=== PATIENT | female | born 2000 | race Caucasian/White ===

== ENCOUNTER 2020-03-29 06:51 | Outpatient (NON) | payer OTHER, SELFPAY ==
[2020-03-29 18:18] LABS: SARS-CoV-2 RNA PCR Negative
== END 2020-03-29 06:52 ==
PROVIDERS: Visit Provider Pediatrics
DX: Z20.828 Contact with and (suspected) exposure to other viral communicable diseases (principal); R50.9 Fever, unspecified
CPT/HCPCS: 87635; C9803; U0003

== ENCOUNTER 2021-01-06 19:16 | Emergency (ER) | payer OTHER, SELFPAY ==
--- NOTE | ~2021-01-06 | US_ITS ---
EXAMINATION: US OB <=14 wk fetus w TV DATE: 01/06/2021 20:19 INDICATION: Cramping and bleeding. TECHNIQUE: Real-time transabdominal and transvaginal pelvic ultrasound was performed. COMPARISON: None. FINDINGS: TRANSABDOMINAL ULTRASOUND: The uterus measures 8.0 x 4.3 x 5.0 cm. TRANSVAGINAL ULTRASOUND: There is a 4 mm cyst in the endometrial complex that may be a gestational sa c with estimated gestational age of 5 weeks and 0 days +/- 3 days. No yolk sac or pole is ident ified. The right ovary measures 2.9 x 2.2 x 2.0 cm. The left ovary measures 3.2 x 2.9 x 2.0 cm. There is no free fluid in the pelvis. IMPRESSION: 1. 4 mm cyst in the endometrial complex that may be a gestational sac with estimated date of deliver y of 09/08/2021. Ectopic and spontaneous are not excluded. Serial beta hCGs are pao mmended. Reviewed, dictated and finalized at location A. IMPRESSION: 1. 4 mm cyst in the endometrial complex that may be a gestational sac with est imated date of delivery of 09/08/2021. Ectopic and spontaneous are not excluded. Serial beta hCGs are recommended.
[2021-01-06 19:25] VITALS: BP 141/72; PULSE 83; RESP 16; TEMP 36.3; O2SAT 100
[2021-01-06 19:47] LABS: Basophils Percent Auto 0.5 % (0.2-1.2); Eosinophils Absolute Auto 0.1 K/mm3 (0-0.3); Eosinophils Percent Auto 1.3 % (0-4.4); Hemoglobin 12.8 g/dL (12.0-15.0); Immature Granulocyte Absolute 0.02 K/mm3 (0.00-0.031); Immature Granulocyte Percent A 0.3 % (0-0.5); Lymphocytes Absolute Auto 2.09 K/mm3 (0.9-3.2); Lymphocytes Percent Auto 27.9 % (18.3-44.2); Mean Corpuscular HGB Conc 32.8 g/dl (32-36); Mean Corpuscular Hemoglobin 30.4 pg (26-34); Mean Corpuscular Volume 92.6 fl (80-100); Mean Platelet Volume 9.3 fl (7.4-10.4); Monocytes Absolute Auto 0.6 K/mm3 (0.1-0.6); Monocytes Percent Auto 8.2 % (2.6-8.5); Neutrophils Absolute Auto 4.6 K/mm3 (1.3-6.7); Neutrophils Percent Auto 61.8 % (45.5-73.1); Platelet Count Result 341 k/mm3 (150-375); Red Blood Count 4.21 M/mm3 (4.2-5.4); Red Cell Distribution Width 12.8 % (11.5-14.5); White Blood Count 7.5 K/mm3 (4.5-10.0)
--- NOTE | 2021-01-06 20:39 | ED.PREGNANCY ---
HPI - History of Present Illness HPI Narrative: female at approximately 8 weeks gestation by LMP presents to the ED for vaginal bleeding. She reports that she had a small amount of dark blood yesterday. Today she noted a small amount fo bright red blood. This is associated with mild pelvic cramping. She has not had an US or OB appointment yet this . Related Data Home Medications Medication Instructions Recorded Confirmed [id number] tablet PO 01/06/21 [] Allergies Allergy/AdvReac Type Severity Reaction Status Date / Time No Known Allergies Allergy Verified 01/06/21 19:24 Review of Systems Review of Systems: All systems reviewed & are unremarkable except as noted in HPI and below Constitutional: Constitutional: Denies fever(s) ENT: Denies dizziness Cardiovascular: Cardiovascular: Denies chest pain Respiratory: Respiratory: Denies dyspnea Gastrointestinal: Gastrointestinal: Denies nausea Genitourinary: Genitourinary: Denies hematuria, Denies dysuria and Denies vaginal discharge Neurologic: Denies weakness [facility] Past Medical History Medical History No active medical problems Social History Social History Smoking status: Never smoker Gender identity (if verbalized by the patient): Female Exam Const: General: healthy appearing, no acute distress and alert Orientation/consciousness: patient oriented x3 HENMT: Head: normal to inspection Neck: Neck: normal visual inspection Resp: Effort & Inspection: normal respiratory effort Auscultation: clear to auscultation bilaterally, no rales, no rhonchi and no wheezes Cardio: Jugular venous distension: no JVD Rate: regular rate Rhythm: regular rhythm Heart sounds: no murmurs GI: Inspection: non-distended GI Palp: Yes Soft to palpation and No Tenderness to palpation present (GI) Skin: General skin exam: normal color Neuro: General: patient oriented x3 and moves all extremities Speech: normal speech Extrem: General: no edema Psych: Appearance: well kempt Affect: normal affect Course Vital Signs Vital signs: Vital Signs Temperature 36.3 C L 01/06/21 19:25 Pulse Rate 83 01/06/21 19:25 Respiratory Rate 16 01/06/21 19:25 Blood Pressure 141/72 H 01/06/21 19:25 Pulse Oximetry 100 01/06/21 19:25 Temperature 36.6 C 01/06/21 23:02 Pulse Rate 80 01/06/21 23:02 Respiratory Rate 16 01/06/21 23:02 Blood Pressure 122/83 01/06/21 23:02 Pulse Oximetry 100 01/06/21 23:02 MDM - OB/Uterine Contractions MDM Narrative Medical decision making narrative: Inconclusive US and hcg. Could be early or impending . She will need follow-up hcg. Dr. anna informed. Findings and plan discussed with the patient. Medical Records Attestation: I reviewed the patient's medical records. Lab Data Attestation: I reviewed the patient's lab results. Result diagrams: 01/06/21 19:39 Labs: Lab Results 01/06/21 01/06/21 01/06/21 Range/Units 19:39 19:39 19:39 WBC 7.5 (4.5-10.0) K/mm3 RBC 4.21 (4.2-5.4) M/mm3 Hgb 12.8 (12.0-15.0) g/dL Hct 39.0 (37.0-47.0) % MCV 92.6 (80-100) fl MCH 30.4 (26-34) pg MCHC 32.8 (32-36) g/dl RDW 12.8 (11.5-14.5) % Plt Count 341 (150-375) k/mm3 MPV 9.3 (7.4-10.4) fl Immature Gran % (Auto) 0.3 (0-0.5) % Neut % (Auto) 61.8 (45.5-73.1) % Lymph % (Auto) 27.9 (18.3-44.2) % [place] % (Auto) 8.2 (2.6-8.5) % Eos % (Auto) 1.3 (0-4.4) % Baso % (Auto) 0.5 (0.2-1.2) % Lymph # (Auto) 2.09 (0.9-3.2) K/mm3 [place] # (Auto) 0.6 (0.1-0.6) K/mm3 Eos # (Auto) 0.1 (0-0.3) K/mm3 Baso # (Auto) 0.0 (0.0-0.1) K/mm3 Abs Immat Gran (auto) 0.02 (0.00-0.031) K/mm3 Absolute Neuts (auto) 4.6 (1.3-6.7) K/mm3 Absolute Nucl
[2021-01-06 20:59] VITALS: BP 135/75; PULSE 87; RESP 18; TEMP 36.8; O2SAT 99
[2021-01-06 23:02] VITALS: BP 122/83; PULSE 80; RESP 16; TEMP 36.6; O2SAT 100
== END 2021-01-06 23:02 | disposition home or self-care (01) ==
PROVIDERS: Emergency Provider Emergency Medicine; PCP Family Medicine
DX: O20.0 Threatened abortion (principal); Z3A.01 Less than 8 weeks gestation of pregnancy
CPT/HCPCS: 36415; 76801; 76817; 84702; 85025; 85461; 99284

== ENCOUNTER 2021-01-07 11:57 | Emergency (ER) | payer OTHER, SELFPAY ==
[2021-01-07 12:01] VITALS: BP 128/85; PULSE 90; RESP 20; TEMP 36.8; O2SAT 100
--- NOTE | 2021-01-07 13:16 | ED.PREGNANCY ---
HPI - General Chief complaint: Vaginal Bleeding Stated complaint: abd cramps Time Seen by Provider: 01/07/21 12:58 Source: patient Mode of arrival: ambulatory Limitations: no limitations History of Present Illness HPI Narrative: This is a 21 year old about 8 weeks by LMP that presents to the ER for pelvic cramping. Reports she has noted pelvic cramping and vaginal bleeding over the last couple of days. She was seen here for this yesterday and had ultrasound which did not show a definite intrauterine or extrauterine . She was to follow-up for serial beta hCGs with her OB. Her OB is Dr. Stanley. Her pain increased today which prompted her to be seen again. Does still report ongoing vaginal bleeding. Also reports some nausea and vomiting. Denies fever or dysuria. Related Data Home Medications Medication Instructions Recorded Confirmed [id number] tablet PO 01/06/21 [] Allergies Allergy/AdvReac Type Severity Reaction Status Date / Time No Known Allergies Allergy Verified 01/06/21 19:24 Review of Systems Review of Systems: CONSTITUTIONAL: Denies fever GASTROINTESTINAL: Reports abdominal pain, nausea, vomiting GENITOURINARY: Denies dysuria or hematuria. All systems reviewed & are unremarkable except as noted in HPI and below PMFSH Past Medical History Medical History (Updated 01/07/21 @ 15:04 by Genet Bearden PA-C) No active medical problems Social History Social History (Updated 01/07/21 @ 13:19 by Genet Bearden PA-C) Smoking status: Never smoker Gender identity (if verbalized by the patient): Female Exam Narrative: GENERAL: Well-appearing, well-nourished, and in no acute distress. HEAD: Normocephalic, atraumatic. EYES: EOMI. CHEST: Clear to auscultation. No respiratory distress. No wheezes rales or rhonchi HEART: Regular rate and rhythm. No murmur heard. Normal peripheral pulses. ABDOMEN: Soft, nondistended, normal active bowel sounds. Mild tenderness to palpation throughout the lower abdomen/pelvis, without guarding. No CVA tenderness EXTREMITIES: Normal range of motion. No edema. SKIN: Warm, dry, no rash. NEURO: No focal deficits. Alert and oriented x3. PSYCH: Normal mood and affect PELVIC: Cervix appears dilated. Patient is passing tissue/blood clots. No concerning amount of bleeding noted Course Consultations Consultation #1: Spoke with Dr. Stanley about patient and work-up. Is okay with patient having Flora and ibuprofen as needed for pain. She is to call tomorrow to make an appointment to follow-up in clinic this week. Date: 01/07/21 Time: 15:02 Vital Signs Vital signs: Vital Signs Temperature 98.3 F 01/07/21 12:01 Pulse Rate 90 01/07/21 12:01 Respiratory Rate 20 01/07/21 12:01 Blood Pressure 128/85 01/07/21 12:01 Pulse Oximetry 100 01/07/21 12:01 Temperature 98.3 F 01/07/21 12:01 Pulse Rate 90 01/07/21 12:01 Respiratory Rate 20 01/07/21 12:01 Blood Pressure 128/85 01/07/21 12:01 Pulse Oximetry 100 01/07/21 12:01 MDM - OB/Uterine Contractions MDM Narrative Medical decision making narrative: Patient presents emergency department for increasing pelvic cramping. Was seen here yesterday for vaginal bleeding of early . Yesterday ultrasound did not show a definite intrauterine . Patient's vitals are stable. She is A positive. Hemoglobin is 12.7. No concerning amount of bleeding on pelvic exam. It does appear that she is starting to pass some tissue on pelvic exam. Her quantitative beta-hCG has decreased from [address] Stanley about patient and work-up. Is okay with patient having Flora and ibuprofen as needed for pain. She is to call tomorrow to make an appointment to follow-up in clinic this week. Patient is stable and felt appropriate for further outpatient evaluation. She was given warnings to return to the ER Lab Data Attestation: I reviewed
[2021-01-07] MEDS: METOCLOPRAMIDE HCL INJ 10 MG/2 ML VIAL IV PUSH (13:25)
[2021-01-07] MEDS: diphenhydrAMINE HCl INJ 50 MG/ML VIAL 25 MG IV PUSH (13:26)
[2021-01-07 13:43] LABS: Basophils Percent Auto 0.4 % (0.2-1.2); Eosinophils Absolute Auto 0.1 K/mm3 (0-0.3); Hematocrit 38.7 % (37.0-47.0); Hemoglobin 12.7 g/dL (12.0-15.0); Immature Granulocyte Absolute 0.01 K/mm3 (0.00-0.031); Immature Granulocyte Percent A 0.1 % (0-0.5); Lymphocytes Absolute Auto 1.24 K/mm3 (0.9-3.2); Mean Corpuscular HGB Conc 32.8 g/dl (32-36); Mean Corpuscular Volume 91.3 fl (80-100); Mean Platelet Volume 9.7 fl (7.4-10.4); Monocytes Absolute Auto 0.7 K/mm3 (0.1-0.6); Monocytes Percent Auto 8.4 % (2.6-8.5); Neutrophils Absolute Auto 5.7 K/mm3 (1.3-6.7); Neutrophils Percent Auto 74.1 % (45.5-73.1); Platelet Count Result 337 k/mm3 (150-375); Red Blood Count 4.24 M/mm3 (4.2-5.4); Red Cell Distribution Width 12.8 % (11.5-14.5); White Blood Count 7.8 K/mm3 (4.5-10.0)
[2021-01-07 13:55] LABS: Alanine Aminotransferase 16 U/L (4-35); Albumin Level 4.6 g/dL (3.5-5.1); Alkaline Phosphatase 50 U/L (38-126); Anion Gap 9 mmol/L (8-16); Aspartate Amino Transferase 30 U/L (14-36); Bilirubin,Total 0.7 mg/dL (0.2-1.3); Blood Urea Nitrogen 9 mg/dL (7-17); Calcium 9.7 mg/dL (8.4-10.2); Carbon Dioxide 21 mmol/L (22-30); Chloride 106 mmol/L (98-107); Estimated CRCL calculation 150 ml/min; Estimated Glomerular Filt Rate > 60; Glucose 100 mg/dL (65-110); Potassium 3.8 mmol/L (3.4-5.0); Sodium 136 mmol/L (137-145)
[2021-01-07 15:00] LABS: Add Urine Microscopic? YES; Appearance Urine Clear (Clear); Bilirubin Urine Negative (Negative); Blood Urine 2+ (Negative); Color Urine Yellow (Yellow); Glucose Urine UA Negative (Negative); Ketones Urine Trace mg/dL (Negative); Leukocyte Esterase Ur Negative LEU/UL (Negative); Mucus Urine Rare /lpf; Nitrate Urine Negative (Negative); Protein Urine Negative (Negative); Squamous Epithelial Cell Urine Occasional /hpf (Few); Urobilinogen Urine Negative mg/dL (<2.0); WBC Urine 0-3 /hpf
[2021-01-07 15:07] LABS: Specific Grav Ur 1.031 (1.001-1.035)
[2021-01-07 15:27] VITALS: BP 131/76; PULSE 84; RESP 17; O2SAT 98
== END 2021-01-07 15:29 | disposition home or self-care (01) ==
PROVIDERS: Physician Assistant; Emergency Provider Emergency Medicine; PCP Family Medicine
DX: O03.4 Incomplete spontaneous abortion without complication (principal)
CPT/HCPCS: 36415; 80053; 81001; 84702; 85025; 99284; J0131; J1200; J2765

== ENCOUNTER 2021-08-02 15:35 | Outpatient (CLI) | payer OTHER, SELFPAY ==
--- NOTE | ~2021-08-02 | US_ITS ---
EXAMINATION: US OB /maternal detail DATE: 08/02/2021 17:24 INDICATION: survey TECHNIQUE: Multiple obstetric sonographic images performed. FINDINGS: No prior studies for comparison. There is a single living fetus in breech presentation. The placenta is posterior without placenta pr evia. Amniotic fluid volume is subjectively normal. cardiac activity and movement is noted with a heart rate of 146 beats per minute. The following anatomy was identified as normal: 4 chamber heart 3 vessel cord cord insertion kidneys urinary bladder stomach spine diaphragm ventricles cisterna magna cerebellum The following biometric data were obtained: BPD: 48mm corresponds to gestational age 20 weeks 4 days. Head circumference: 189 mm corresponds to gestational age 21 weeks 1 days. Abdominal circumference: 163 mm corresponds to gestational age 21 weeks 3 days. Femur length: 35 mm corresponds to gestational age 21 weeks 0 days. Head circumference to abdominal circumference ratio: 1.16 (normal range for expected gestational age is 1.06-1.25). Estimated weight: 404 grams +/- 61 grams using Hadlock method. IMPRESSION: 1: Single living intrauterine with an estimated gestational age of 21weeks 0days by current ultrasound measurements, with an EDC of 12/13/2021 in breech presentation. 2. Normal survey. Reviewed, dictated and finalized at location A. R IMPRESSION: 1: Single living intrauterine with an estimated gestational age of 21 weeks 0days by current ultrasound measurements, with an EDC of 12/13/2021 in allison ech presentation. 2. Normal survey.
== END 2021-08-02 15:36 | disposition home or self-care (01) ==
PROVIDERS: PCP Family Medicine; Visit Provider Obstetrics & Gynecology
DX: Z34.92 Encounter for supervision of normal pregnancy, unspecified, second trimester (principal); Z3A.21 21 weeks gestation of pregnancy
CPT/HCPCS: 76805

== ENCOUNTER 2021-12-19 15:55 | Inpatient (IN) | payer OTHER, SELFPAY ==
[2021-12-19] VITALS (18 sets, daily range): BP systolic 115–134; BP diastolic 77–101; PULSE 67–104; TEMP 35.8–36.6; BMI 36.3
--- NOTE | 2021-12-19 17:12 | LDADM ---
This patient, Steven Luna, was admitted to Labor/Delivery/Recovery 109 on 12/19/21 at 15:55. Plans for labor, pain management and were discussed with patient. Patient/family oriented to hospital policies and general routines including ID bracelet, bed and alarms, visiting hours, pain management, procedures, bathroom and other care routines, personal items, smoking policy, room service/diet and guest tray routines, security routines, and visiting hours. Patient/Family are encouraged to report perceived risks to care and to ask questions if they do not understand what they are told or what they should do. See OBIX for further documentation.
[2021-12-19 17:13] LABS: Basophils Absolute Auto 0.1 K/mm3 (0.0-0.1); Basophils Percent Auto 0.5 % (0.2-1.2); Eosinophils Absolute Auto 0.2 K/mm3 (0-0.3); Eosinophils Percent Auto 1.9 % (0-4.4); Hematocrit 34.8 % (37.0-47.0); Hemoglobin 11.4 g/dL (12.0-15.0); Immature Granulocyte Absolute 0.08 K/mm3 (0.00-0.031); Immature Granulocyte Percent A 0.6 % (0-0.5); Lymphocytes Absolute Auto 2.06 K/mm3 (0.9-3.2); Lymphocytes Percent Auto 16.4 % (18.3-44.2); Mean Corpuscular HGB Conc 32.8 g/dl (32-36); Mean Corpuscular Hemoglobin 27.7 pg (26-34); Mean Corpuscular Volume 84.7 fl (80-100); Mean Platelet Volume 11.2 fl (7.4-10.4); Monocytes Absolute Auto 0.9 K/mm3 (0.1-0.6); Monocytes Percent Auto 6.8 % (2.6-8.5); Neutrophils Absolute Auto 9.3 K/mm3 (1.3-6.7); Neutrophils Percent Auto 73.8 % (45.5-73.1); Platelet Count Result 304 k/mm3 (150-375); Red Blood Count 4.11 M/mm3 (4.2-5.4); Red Cell Distribution Width 14.7 % (11.5-14.5); White Blood Count 12.5 K/mm3 (4.5-10.0)
[2021-12-19] MEDS: DINOPROSTONE 10 MG VAG INSERT VAGINAL (17:20)
--- NOTE | 2021-12-19 19:09 | WPDANESEPP ---
Anes - Eval Pre Procedure Procedure: labor epidural Date/Time: 12/19/21 19:09 Pre Op Diagnosis: iol Patient Data Age: 21 Gender: F Height: 1.6 m Weight: 93 kg Last Vital Signs Temp 36.6 C 12/19/21 17:01 Pulse 90 12/19/21 19:00 BP 121/88 12/19/21 19:00 O2 Del Method Room Air 12/19/21 17:10 Allergies Allergy/AdvReac Type Severity Reaction Status Date / Time No Known Allergies Allergy Verified 11/23/21 14:37 Home Medications Medication Instructions Recorded Confirmed Type 1 1 tablet PO DAILY 12/19/21 12/19/21 History Laboratory Tests 12/19/21 12/19/21 12/19/21 17:00 17:00 17:00 WBC 12.5 K/mm3 H K/mm3 (4.5-10.0) RBC 4.11 M/mm3 L M/mm3 (4.2-5.4) Hgb 11.4 g/dL L g/dL (12.0-15.0) Hct 34.8 % L % (37.0-47.0) MCV 84.7 fl fl (80-100) MCH 27.7 pg pg (26-34) MCHC 32.8 g/dl g/dl (32-36) RDW 14.7 % H % (11.5-14.5) Plt Count 304 k/mm3 k/mm3 (150-375) MPV 11.2 fl H fl (7.4-10.4) Immature Gran % (Auto) 0.6 % H % (0-0.5) Neut % (Auto) 73.8 % H % (45.5-73.1) Lymph % (Auto) 16.4 % L % (18.3-44.2) Frio % (Auto) 6.8 % % (2.6-8.5) Eos % (Auto) 1.9 % % (0-4.4) Baso % (Auto) 0.5 % % (0.2-1.2) Lymph # (Auto) 2.06 K/mm3 K/mm3 (0.9-3.2) Frio # (Auto) 0.9 K/mm3 H K/mm3 (0.1-0.6) Eos # (Auto) 0.2 K/mm3 K/mm3 (0-0.3) Baso # (Auto) 0.1 K/mm3 K/mm3 (0.0-0.1) Abs Immat Gran (auto) 0.08 K/mm3 H K/mm3 (0.00-0.031) Absolute Neuts (auto) 9.3 K/mm3 H K/mm3 (1.3-6.7) Absolute Nucleated RBC 0.0 K/mm3 K/mm3 (0.0-0.012) Nucleated RBC % 0.0 % % (0.0-0.2) RPR Pending Blood Type A Positive Antibody Screen Negative Patient hx anesthesia problems: none Family hx anesthesia problems: none Results Review: All pre-operative results and documents have been reviewed as part of the pre-operative evaluation. 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
[2021-12-19] MEDS: fentaNYL CITRATE INJ (*CRX) 100 MCG/2 ML VIAL 50 MCG IV PUSH (22:46)
[2021-12-19] MEDS: fentaNYL CITRATE INJ (*CRX) 100 MCG/2 ML VIAL IV PUSH (23:53)
[2021-12-20] VITALS (296 sets, daily range): BP systolic 74–143; BP diastolic 19–104; PULSE 61–170; RESP 15–20; TEMP 36.1–36.9; O2SAT 94–100
[2021-12-20] MEDS: LACTATED RINGERS 1,000 ML 125 ML IV CONT ×3 (01:00→07:50)
[2021-12-20] MEDS: OXYTOCIN 30 UNITS/NS 500 ML 30 UNITS/500 ML BAG 6 UNITS IV CONT (05:00)
--- NOTE | 2021-12-20 07:15 | PM.IMHP ---
H&P: HPI History of Present Illness Date/Time: 12/20/21 07:15 Chief Complaint: Here for induction of labor. Narrative: 21 y/o at 41 1/7 weeks here for induction of labor. Cervidil last evening, has been withdrawn. Now comfortable with epidural. GBS neg. 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 Gender identity (if verbalized by the patient): Female Sexual Orientation (if Verbalized by the Patient): Straight or Heterosexual Spiritual care concerns: No Agree to blood products: Yes Meds Home Medications and Allergies Home Medications Medication Instructions Recorded Confirmed Type 1 1 tablet PO DAILY 12/19/21 12/19/21 History Allergies Allergy/AdvReac Type Severity Reaction Status Date / Time No Known Allergies Allergy Verified 11/23/21 14:37 Vital Signs Vital Signs - 24 hr 12/19/21 17:10 12/19/21 17:11 12/19/21 17:15 Temperature Pulse Rate 97 104 H Blood Pressure 127/101 H 120/90 Pulse Oximetry Oxygen Delivery Room Air 12/19/21 17:30 12/19/21 17:45 12/19/21 17:01 Temperature 36.6 C Pulse Rate 99 96 Blood Pressure 121/86 121/84 Pulse Oximetry Oxygen Delivery 12/19/21 18:00 12/19/21 18:15 12/19/21 18:30 Temperature Pulse Rate 95 90 90 Blood Pressure 115/84 119/82 124/80 Pulse Oximetry Oxygen Delivery 12/19/21 18:45 12/19/21 19:00 12/19/21 19:15 Temperature 35.8 C L Pulse Rate 93 90 81 Blood Pressure 121/82 121/88 123/77 Pulse Oximetry Oxygen Delivery 12/19/21 19:26 12/19/21 19:25 12/19/21 22:03 Temperature 35.8 C L Pulse Rate 83 69 Blood Pressure 126/81 130/87 Pulse Oximetry Oxygen Delivery 12/19/21 22:01 12/19/21 22:30 12/19/21 23:00 Temperature 36.4 C 36.6 C Pulse Rate 70 79 Blood Pressure 127/89 123/86 Pulse Oximetry Oxygen Delivery 12/19/21 23:30 12/20/21 00:00 12/20/21 00:24 Temperature Pulse Rate 67 63 75 Blood Pressure 134/90 132/87 137/81 Pulse Oximetry Oxygen Delivery 12/20/21 00:30 12/20/21 01:00 12/20/21 01:11 Temperature 36.4 C Pulse Rate 73 77 Blood Pressure 121/79 126/75 Pulse Oximetry 99 Oxygen Delivery 12/20/21 01:13 12/20/21 01:16 12/20/21 01:17 Temperature Pulse Rate 98 89 101 H Blood Pressure 130/83 125/76 128/63 Pulse Oximetry 99 Oxygen Delivery 12/20/21 01:20 12/20/21 01:21 12/20/21 01:22 Temperature Pulse Rate 82 95 84 Blood Pressure 139/81 131/78 126/78 Pulse Oximetry 99 Oxygen Delivery 12/20/21 01:24 12/20/21 01:26 12/20/21 01:30 Temperature Pulse Rate 94 91 87 Blood Pressure 131/80 129/79 133/90 Pulse Oximetry 100 Oxygen Delivery 12/20/21 01:31 12/20/21 01:36 12/20/21 01:41 Temperature Pulse Rate Blood Pressure Pulse Oximetry 100 96 98 Oxygen Delivery 12/20/21 01:45 12/20/21 01:46 12/20/21 01:51 Temperature Pulse Rate 71 Blood Pressure 126/80 Pulse Oximetry 97 97 Oxygen Delivery 12/20/21 01:56 12/20/21 02:00 12/20/21 02:01 Temperature Pulse Rate 72 Blood Pressure 124/89 Pulse Oximetry 97 100 Oxygen Delivery 12/20/21 02:06 12/20/21 02:11 12/20/21 02:15 Temperature Pulse Rate 68 Blood Pressure 125/8
[2021-12-20] MEDS: FAMOTIDINE 20 MG/2 ML VIAL IV PUSH (07:47)
[2021-12-20] MEDS: CALCIUM CARBONATE (TUMS) 500 MG (200 MG ELEMENTAL) PO (07:47)
[2021-12-20 07:52] LABS: Rapid Plasma Reagin Non-Reactive (NonReactive)
[2021-12-20] MEDS: LORATADINE 10 MG TABLET PO (09:07)
[2021-12-20] MEDS: SODIUM CHLORIDE 0.9% IV 300 ML 600 ML I-UTERINE (11:12)
--- NOTE | 2021-12-20 12:10 | PM.OBPNLAB ---
Pain Control Date/time seen: 12/20/21 12:10 Comfortable with epidural. AVSS NST reactive, but sometimes with decelerations that respond to position change. TOCO: contractions every 2-3 min Cervix 5/90/0. Continue labor for now.
--- NOTE | 2021-12-20 15:50 | PM.OBPNLAB ---
Pain Control Date/time seen: 12/20/21 15:50 Still comfortable with epidural. AVSS NST still with episodes of FHR decelerations. Cervix no significant change in the last 3.5 hours. A: Nonreassuring heart rate tracing with arrest of dilation. P: Offered primary . She understands risks of surgery to include risks of anesthesia, risks of pain, infection, bleeding, blood products, thromboembolic phenomena and damage to adjacent structures such as bowel, bladder, ureters, blood vessels and nerves. She understands all these risks and elects to proceed with surgery.
--- NOTE | 2021-12-20 15:55 | P.PNAN_ITS ---
Anes - Eval Final PreProcedure Day of Procedure 12/20/21 15:55 Patient weight: obese Airway: Mallampati scale class II Neurological: alert and oriented ASA classification: II Emergent: no Anesthetic plan: proceed Anesthesia type and monitoring: regional epidural and standard monitoring Other findings: use existing epid for c/s Results Review: All pre-operative results and documents have been reviewed as part of the pre- operative evaluation. Informed Consent: The patient's anesthetic plan and its attendant risks and benefits were discussed with the patient/family/POA. Questions were solicited and answers provided to the satisfaction of the patient/family/POA.
[2021-12-20] MEDS: ceFAZolin 2 GM/D5W 50 ML 2 GM/50 ML BAG IVPB (16:14)
--- NOTE | 2021-12-20 17:07 | P.PCNOB_ITS ---
OB - Delivery Note Procedure Delivery date: 12/20/21 Procedure: Primary low transverse delivery Intrapartal Events: Arrest of Dilation and Non-Reassuring Status Induction method: Per Cervidil Protocol Delivery augmentation: Rupture of Membranes and Pitocin Delivery monitor: External FHT, External Uterine and Internal Uterine Route of delivery: (Primary LTCS) Specimen: Yes (cord blood, placenta) Quantitative Blood Loss (ml): 905 Anesthesia type: Epidural Disposition: PACU Complications: None Narrative: The patient was taken to the operating room where she was prepared and draped in the usual sterile fashion in dorsal supine position with a leftward tilt. She received cefazolin preoperatively. Spinal anesthesia was found to be adequate. A Pfannenstiel skin incision was made and carried through to the underlying layer of the fascia. The fascia was incised in the midline and the incision was extended laterally. The fascia was dissected free of the underlying rectus muscles. The rectus muscles were in the midline. The peritoneum was identified, tented up and entered sharply. The peritoneal incision was extended superiorly and inferiorly with good visualization of the bladder. The bladder blade was placed. The vesicouterine peritoneum was identified, tented up and entered sharply. The incision was extended laterally and the bladder flap was developed. The bladder blade was replaced. The uterus was then incised sharply in a transverse fashion along the lower uterine segment. The incision was extended laterally. The infant's head was delivered atraumatically to the sterile field, followed by the body. The nose and mouth were bulb suctioned. After a delay, the cord was clamped and cut. The infant was handed off the field. Cord blood was collected. The placenta was removed manually and was passed off the field. The uterus was exteriorized and cleared of all clots and debris. The uterine incision was reapproximated using 0 Monocryl in a running, locked fashion. A second layer of the same suture was run. Excellent hemostasis resulted as did excellent reapproximation of the normal anatomy. The uterus was returned the abdomen. The pelvis was irrigated copiously with warmed normal saline. Rigorous hemostasis was assured. The fascial layer was reapproximated using 0 Vicryl in a running fashion. The skin was closed with a running, subcuticular stitch of 4 0 Vicryl. Dermaflex was applied externally. Sponge, lap, needle and instrument counts were correct. The patient was taken to the recovery room in stable condition. The infant went to the nursery in stable condition. I was present and scrubbed the entire procedure. [place] [facility] Date of : 12/20/21 Time of : 16:36 Weeks of gestation at delivery: 41 Infant gender: Male Weight (pounds): 8 Weight (ounces): 4 presentation: vertex Placenta delivery description: Manual Removal and Normal Configuration Cord Vessel Description: 3 Vessels and Delayed Cord Clamping score one minute: 8 score five minutes: 9
--- NOTE | 2021-12-20 17:10 | PM.OBDSVD ---
DS: Admitting Diagnosis Discharge Date 12/22/21 Admitting Diagnosis IUP at 41 1/7 weeks DS: Discharge Diagnosis Discharge Diagnosis (1) delivery delivered: Code(s): O82 - Encounter for delivery without indication Status: Acute OB - DS: Summary OB Procedures : None OB Procedures Intrapartum: OB Procedures: : None Time Spent with Patient Time attestation: Total time spent providing and/or coordinating discharge services: DS: Data Data Completed and Pending Labs on day of discharge: Labs from last 24 hours 12/19/21 12/19/21 12/19/21 17:00 17:00 17:00 WBC 12.5 H RBC 4.11 L Hgb 11.4 L Hct 34.8 L MCV 84.7 MCH 27.7 MCHC 32.8 RDW 14.7 H Plt Count 304 MPV 11.2 H Immature Gran % (Auto) 0.6 H Neut % (Auto) 73.8 H Lymph % (Auto) 16.4 L [place] % (Auto) 6.8 Eos % (Auto) 1.9 Baso % (Auto) 0.5 Lymph # (Auto) 2.06 [place] # (Auto) 0.9 H Eos # (Auto) 0.2 Baso # (Auto) 0.1 Abs Immat Gran (auto) 0.08 H Absolute Neuts (auto) 9.3 H Absolute Nucleated RBC 0.0 Nucleated RBC % 0.0 RPR Non-reactive Blood Type A Positive Antibody Screen Negative Discharge Plan Discharge Attending physician on discharge: Celso Stanley Consulting providers: Radha Lyles ; Jonathan Irving Discharging Clinician: Alvino Moctezuma Patient Disposition: Home, Self-Care Activity: may shower, may drive after 2 weeks and pelvic rest Diet: regular Wound Care Instructions: incision open to air Discharge Instructions: Call or return if temperature above 100.4? F, increased abdominal pain, increased vaginal bleeding or any new problems. Education: Mom and Baby Guide Given to: Mother Follow-Up: Call your delivering provider's office for an appointment to be seen in: 4 Weeks Mom and baby should come to the [facility] for the follow-up appointment. Appointment Date/Time: December 24, 2021 at 9:00 am What to expect at your follow-up visit: Blood Pressure Check Physical Assessment Call [phone] if you are unable to keep your appointment time. BREAST CARE: * Wear a snug supportive bra. * For engorgement discomfort: Breast Feeding: * Apply warm moist washcloths * Express milk as needed to relieve engorgement * Wear loose clothing * For sore nipples: * Identify correct latch-on * Apply warm moist washcloths before and after nursing * Air dry nipples after nursing * May apply Lansinoh cream to nipples ABDOMINAL INCISION: (if applicable) * Allow incision to air dry * Do NOT use lotions for powders on your incision * When showering, allow soap and water to run over the incision, but do not wash incision PERINEAL CARE: * Until bleeding stops, use your joselito bottle after urinating * Change your pad frequently throughout the day * You may take sitz baths several times a day (fill your bathtub with warm water and soak for 20 minutes.) Do NOT bathe in the water * No tub baths until seen by your physician - You may shower ACTIVITY: * Rest as much as possible. * Do not exercise or lift anything heavier than your baby (such as laundry or other children.) * Avoid stairs or driving as much as possible. * Do not put anything into the vagina. No douching, tampons, or sexual activity until seen by physician. NOTIFY PHYSICIAN IF YOU HAVE ANY QUESTIONS OR IF ANY OF THE FOLLOWING SYMPTOMS OCCUR: * If your incision becomes red, swollen, or more painful than what you have experienced in the hospital. * If your vaginal bleeding becomes foul smelling. * If your vaginal bleeding becomes more heavy than a period or if your bleeding changes from pink to bright red. However, you may pass an occasional walnut-sized clot once or twice for the first week . * If you experience a sharp,
[2021-12-21] VITALS: BP 114/69; PULSE 86; RESP 18; TEMP 36.6; O2SAT 97
[2021-12-21 04:30] VITALS: BP 119/75; PULSE 94; RESP 18; TEMP 36.8; O2SAT 99
[2021-12-21 05:36] LABS: Basophils Absolute Auto 0.1 K/mm3 (0.0-0.1); Basophils Percent Auto 0.4 % (0.2-1.2); Eosinophils Percent Auto 0.1 % (0-4.4); Hematocrit 30.6 % (37.0-47.0); Hemoglobin 9.6 g/dL (12.0-15.0); Immature Granulocyte Absolute 0.12 K/mm3 (0.00-0.031); Immature Granulocyte Percent A 0.5 % (0-0.5); Lymphocytes Absolute Auto 2.05 K/mm3 (0.9-3.2); Lymphocytes Percent Auto 9.2 % (18.3-44.2); Mean Corpuscular HGB Conc 31.4 g/dl (32-36); Mean Corpuscular Hemoglobin 27.4 pg (26-34); Mean Corpuscular Volume 87.4 fl (80-100); Mean Platelet Volume 11.4 fl (7.4-10.4); Monocytes Absolute Auto 1.6 K/mm3 (0.1-0.6); Monocytes Percent Auto 7.1 % (2.6-8.5); Neutrophils Absolute Auto 18.4 K/mm3 (1.3-6.7); Neutrophils Percent Auto 82.7 % (45.5-73.1); Platelet Count Result 245 k/mm3 (150-375); Red Cell Distribution Width 15.4 % (11.5-14.5); White Blood Count 22.3 K/mm3 (4.5-10.0)
--- NOTE | 2021-12-21 06:16 | WPDANLDPN2 ---
Anes-Prog Note L&D Date/Time: 12/21/21 06:16 Comfortable throughout: labor and delivery Neuraxial method: epidural Epidural/Spinal procedure site: clean & non-tender Neuro status: Neuro function grossly intact. Cardiovascular status: normal Respiratory status: normal Airway patency: baseline Mental status: baseline Post-Op hydration status: normal Vital Signs: Last Vital Signs Temp 36.8 C 12/21/21 04:30 Pulse 94 12/21/21 04:30 Resp 18 12/21/21 04:30 BP 119/75 12/21/21 04:30 Pulse Ox 99 12/21/21 04:30 O2 Del Method Room Air 12/21/21 04:30 Pain score (VAS): 0 I/O: Intake & Output 12/20/21 12/20/21 12/21/21 15:59 23:59 07:59 Intake Total 1150 1410 Output Total 1145 1600 Balance 5 -190 Patient feedback: Patient satisfied with anesthetic care.
--- NOTE | 2021-12-21 06:17 | WPDANLDNPN2 ---
Anes-Prog Note L&D-Neuraxial Date/Time: 12/21/21 06:17 Neuraxial medications: epidural PF morphine Opiod-related complaints: none Patient feedback: Patient satisfied with post-operative pain management.
--- NOTE | 2021-12-21 07:15 | PC.NURSE ---
Bag of dextrose 5%/0.45% sodium chloride 1,000ml bag hanging at bedside. Patient states bag completed at 06:00. Medication not scanned in computer. approximately 900ml given.
--- NOTE | 2021-12-21 07:54 | P.PNOB_ITS ---
OB - PN: Subj Subjective Date/time seen: 12/21/21 07:54 Patient comments: no complaints, pain well controlled, tolerating diet and flatus present OB - PN: Obj Data Labs CBC & Chem 7: 12/21/21 04:32 Labs: Laboratory Results - last 24 hr 12/21/21 04:32 WBC 22.3 H RBC 3.50 L Hgb 9.6 L Hct 30.6 L MCV 87.4 MCH 27.4 MCHC 31.4 L RDW 15.4 H Plt Count 245 MPV 11.4 H Immature Gran % (Auto) 0.5 Neut % (Auto) 82.7 H Lymph % (Auto) 9.2 L [place] % (Auto) 7.1 Eos % (Auto) 0.1 Baso % (Auto) 0.4 Lymph # (Auto) 2.05 [place] # (Auto) 1.6 H Eos # (Auto) 0.0 Baso # (Auto) 0.1 Abs Immat Gran (auto) 0.12 H Absolute Neuts (auto) 18.4 H Absolute Nucleated RBC 0.0 Nucleated RBC % 0.0 OB - PN A/P Plan day: 1 Plan: routine care Comments: patient doing well H/H .11/29, continue iron afebrile, VSS incision C/D/I pearson removed, voiding spontaneously plan for infant circumcision, risks, beneftis, alternative discussed continue routine post op care Time Spent With Patient Time: Total time spent is greater than 50% in coordination of care (as documented) at patient's floor/unit and/or counseling patient: Time with patient: less than 15 minutes Review of Systems Constitutional: Constitutional: Reports no additional constitutional complaints Cardiovascular: Cardiovascular: Reports no additional cardiovascular complaints Respiratory: Respiratory: Reports no additional respiratory complaints Gastrointestinal: Gastrointestinal: Reports no additional gastrointestinal complaints Genitourinary: Genitourinary: Reports no additional female genitourinary complaints Exam Const: General: comfortable and no acute distress Resp: Effort & Inspection: normal respiratory effort Auscultation: clear to auscultation bilaterally Cardio: Rate: regular rate GI: GI Palp: Yes Soft to palpation, Yes Tenderness to palpation present (GI) (around incision ) and No Guarding due to palpation present (GI) Auscultation: normal bowel sounds Other: incision C/D/I, covered with Dermabond Psych: Appearance: grossly normal Mental Status: mental status grossly normal Affect: normal affect
[2021-12-21 08:05] VITALS: BP 120/72; PULSE 97; RESP 16; TEMP 37.3; O2SAT 98
[2021-12-21] MEDS: HYDROcodone/acetaminophen (*CRX) 5-325 MG TABLET 1 TAB PO (08:57)
[2021-12-21] MEDS: DOCUSATE SODIUM 100 MG CAPSULE PO ×2 (08:57→15:29)
[2021-12-21] MEDS: MULTIVIT/MIN/PREN/FOL AC/IRON TABLET 1 TAB PO (08:57)
--- NOTE | 2021-12-21 10:54 | PC.NURSE ---
[id number] Introductions were made, then consulted with patient to assess needs related to . Mother led the conversation with her experience feeding her so far. Mother works well with her . Encouraged understanding of the benefits of skin to skin (unwrapping and placing vertically on her chest), responsive feeding and how to watch for early feeding signs, frequency of feeding on demand about every 8-12 times in 24 hours (every 2-3 hours), milk production, duration of feeding, signs of adequate intake/output and how to record on the feeding sheet. Reviewed positioning and ear, shoulder, hip alignment, supporting the breast, asymmetrical latch (off-center), and leading with the chin with a big open side gape. Infant latched optimally to the right breast in football position. Education given to mother of how to visualize suck/swallow ratios and drinking at the breast. Infant was able to maintain latch without discomfort to mother. Nipple care reviewed with optimal latch and good positioning. Resources used to facilitate learning were used with the visual handouts/mom and baby guide. Mother voiced understanding of responsive feedings, stimulating with skin to skin, massage touch, and talking to infant to encourage if it has been 2 -3 hours since the start of the last , to call if infant does not latch or there is discomfort with . Reported to the primary RN.
[2021-12-21 11:54] VITALS: BP 120/80; PULSE 97; RESP 16; TEMP 36.7; O2SAT 96
--- NOTE | 2021-12-21 12:39 | PM.OBDSVD ---
DS: Admitting Diagnosis Discharge Date 12/22/21 Admitting Diagnosis intrauterine at term OB - DS: Summary OB Procedures : None OB Procedures Intrapartum: OB Procedures: : None Peripartum Data Infant Delivery Method: Section Procedures: Procedures Operation Date: 12/20/21 16:00 Actual Procedure Side Surgeon p Section Not Applicable Celso Stanley MD complications: none Status at Discharge Functional status at discharge: independent ambulation Overall status at discharge: patient is progressing back to baseline Time Spent with Patient Time attestation: Total time spent providing and/or coordinating discharge services: Time spent: Less than 30 minutes Exam Const: General: comfortable and no acute distress Resp: Effort & Inspection: normal respiratory effort Auscultation: clear to auscultation bilaterally Cardio: Rate: regular rate GI: Inspection: non-distended GI Palp: Yes Soft to palpation, No Firmness to palpation present (GI), Yes Tenderness to palpation present (GI) (mild tenderness over incision ) and No Guarding due to palpation present (GI) Auscultation: normal bowel sounds Psych: Appearance: grossly normal Mental Status: mental status grossly normal DS: Data Data Completed and Pending Pending studies at discharge: Pending at discharge 12/20/21 16:37 Surgical [PTH] Routine Labs on day of discharge: Labs from last 24 hours 12/21/21 04:32 WBC 22.3 H RBC 3.50 L Hgb 9.6 L Hct 30.6 L MCV 87.4 MCH 27.4 MCHC 31.4 L RDW 15.4 H Plt Count 245 MPV 11.4 H Immature Gran % (Auto) 0.5 Neut % (Auto) 82.7 H Lymph % (Auto) 9.2 L [place] % (Auto) 7.1 Eos % (Auto) 0.1 Baso % (Auto) 0.4 Lymph # (Auto) 2.05 [place] # (Auto) 1.6 H Eos # (Auto) 0.0 Baso # (Auto) 0.1 Abs Immat Gran (auto) 0.12 H Absolute Neuts (auto) 18.4 H Absolute Nucleated RBC 0.0 Nucleated RBC % 0.0 Discharge Plan Discharge Attending physician on discharge: Celso Stanley Discharging Clinician: Alvino Moctezuma Patient Disposition: Home, Self-Care Activity: may shower, may drive after 2 weeks and pelvic rest Diet: regular Wound Care Instructions: incision open to air Discharge Instructions: Call or return if temperature above 100.4? F, increased abdominal pain, increased vaginal bleeding or any new problems. Stand Alone Forms: General Discharge Information Follow-up/Referrals: Celso Stanley MD [Physician] - 4 Weeks Discharge Medications: New hydrocodone-acetaminophen 5-325 mg tablet 1 - 2 tablet PO Q6H Qty: 30 0RF ibuprofen 600 mg tablet 600 mg PO Q6H PRN (Reason: cramps) Qty: 30 0RF Continued 1 1 tablet PO DAILY Date of admission: 12/19/21 15:55 Primary Care Provider: Neida Zelaya Admitting Provider: Celso Stanley Attending physician on admission: Celso Stanley Condition: Stable
[2021-12-21] MEDS: HYDROcodone/acetaminophen (*CRX) 10-325 MG TABLET 1 TAB PO (13:22)
[2021-12-21] MEDS: SIMETHICONE 80 MG TAB.CHEW PO (15:29)
[2021-12-21] MEDS: POLYSACCHARIDE IRON COMPLEX 150 MG CAPSULE PO (15:30)
[2021-12-21] MEDS: IBUPROFEN 600 MG TABLET PO (15:30)
[2021-12-21 19:38] VITALS: BP 94/56; PULSE 90; RESP 16; TEMP 36.4
[2021-12-22] MEDS: IBUPROFEN 600 MG TABLET PO (05:13)
[2021-12-22] MEDS: MULTIVIT/MIN/PREN/FOL AC/IRON TABLET 1 TAB PO (08:25)
[2021-12-22] MEDS: POLYSACCHARIDE IRON COMPLEX 150 MG CAPSULE PO (08:25)
--- NOTE | 2021-12-22 08:25 | PC.NURSE ---
Patient to view the discharge video Mother & Baby Care, The First Two Weeks online. Patient was given the opportunity and encouraged to ask questions. Patient verbalized understanding of information shared and has been given the mother/baby guide for home reference.
[2021-12-22] MEDS: DOCUSATE SODIUM 100 MG CAPSULE PO (08:26)
[2021-12-22 09:45] VITALS: BP 122/74; PULSE 96; RESP 18; TEMP 36.1; O2SAT 100
[2021-12-24 08:47] VITALS: BP 118/76; PULSE 97; RESP 20; TEMP 37.1; O2SAT 99
== END 2021-12-22 11:30 | disposition home or self-care (01) | DRG 807 ==
LOC: ANHLDR 12-20 17:12 → ANHOB2 12-22 10:29 → ANHLDR 12-25 08:14 → ANHOB2 12-25 08:14
PROVIDERS: Admitting Provider Obstetrics & Gynecology; PCP Family Medicine; Visit Provider Student in an Organized Health Care Education/Training Program
PROC: 10E0XZZ Delivery of Products of Conception, External Approach (ICD-10-PCS; CPT 59514; principal; 2021-12-20 16:00)
DX: O99.62 Diseases of the digestive system complicating childbirth (principal); Z37.0 Single live birth; Z3A.41 41 weeks gestation of pregnancy; K21.9 Gastro-esophageal reflux disease without esophagitis; O36.8330 Maternal care for abnormalities of the fetal heart rate or rhythm, third trimester, not applicable or unspecified; O62.1 Secondary uterine inertia
CPT/HCPCS: 36415; 85025; 86592; 86850; 86900; 86901; 88307; A9270; J0131; J0690; J2250; J2274; J2370; J2405; J2590; J2795; J3010; J7030; J7120

== ENCOUNTER 2022-12-18 14:06 | Outpatient (CLI) | payer OTHER, SELFPAY ==
--- NOTE | ~2022-12-18 | XR_ITS ---
EXAM: XR lumbar spine 2-3V DATE: 12/18/2022 14:35 HISTORY: M54.50 - Low back pain, unspecified . COMPARISON: None available. FINDINGS: 5 nonrib-bearing lumbar-type vertebral bodies. Pedicles intact. Normal vertebral body alig nment. Vertebral body heights preserved. Disc spaces maintained. Normal facets and posterior elements . No fracture or dislocation. Incidental note of mild disc space narrowing and marginal osteophytosis at multiple levels in the lower thoracic spine. IMPRESSION: Normal lumbar spine radiograph findings. Mild degenerative disc disease in the lower thor acic spine. Reviewed, dictated and finalized at location K. IMPRESSION: Normal lumbar spine radiograph findings. Mild degenerative disc dis ease in the lower thoracic spine.
== END 2022-12-18 14:07 | disposition home or self-care (01) ==
PROVIDERS: PCP Family Medicine; Visit Provider Physician Assistant
DX: M51.34 Other intervertebral disc degeneration, thoracic region (principal)
CPT/HCPCS: 72100

== ENCOUNTER 2023-12-18 17:12 | Emergency (ER) | payer OTHER, SELFPAY ==
--- NOTE | ~2023-12-18 | US_ITS ---
US renal BI Ordering provider: Juvencio Clancy MD History: . flank pain eval for hydro . Comparison: None. Technique: Ultrasound bilateral kidneys. Findings: RIGHT KIDNEY: Measures 10.9x 4.9x 5.8 cm in length which is normal in size. No renal cysts. No renal mass or visualized echogenic stones. Otherwise, normal echotexture and contour. No hydronephrosis. No rmal renal cortical thickness. LEFT KIDNEY: Measures 11.3x 5.2x 4.4 cm in length which is normal in size. No renal cysts. No renal m ass or visualized echogenic stones. Otherwise, normal echotexture and contour. No hydronephrosis. Nor mal renal cortical thickness. BLADDER: Normal. IMPRESSION: Normal study. Reviewed, dictated and finalized at location A. IMPRESSION: Normal study.
--- NOTE | ~2023-12-18 | US_ITS ---
Limited ABDOMINAL ULTRASOUND Ordering provider: Juvencio Clancy MD History: . abdominal pain( patient is 17 wks ) . Comparison: None. FINDINGS: LIVER: Normal size and echotexture. The liver measures 15.5 cm. No focal hepatic lesions or perihepat ic fluid collections are identified. Normal portal vein flow. GALLBLADDER: Unremarkable. No evidence for stones, sludge, gallbladder wall thickening or pericholecy stic fluid collections. The wall thickness is 2 mm. A negative sonographic Santiago's sign was noted. BILIARY DUCTS: No evidence for intra or extrahepatic biliary dilation. Common bile duct measures 4 mm in diameter which is within normal limits. PANCREAS: Normal echotexture and size. IVC: Patent. FREE FLUID: None. IMPRESSION: 1. Unremarkable limited ultrasound of the abdomen. Reviewed, dictated and finalized at location A.
[2023-12-18 17:27] VITALS: BP 125/85; PULSE 122; RESP 20; TEMP 37.1; O2SAT 97
--- NOTE | 2023-12-18 17:28 | ED.GENADULT ---
HPI - General Adult General Chief complaint: Back Pain/Injury <Tj Rivera APRN - Last Filed: 12/18/23 17:30> Stated complaint: back pain, 17 weeks <Tj Rivera APRN - Last Filed: 12/18/23 17:30> Time Seen by Provider: 12/18/23 20:35 <Tj Rivera APRN - Last Filed: 12/18/23 17:30> History of Present Illness HPI narrative: 23-year-old female who is 17 weeks , , presents to the emergency room for acute onset of right mid back pain that began yesterday. Denies any injury or trauma. States the back pain is worse with movement and inspiration. This morning patient developed nausea and has had multiple episodes of nonbilious, nonbloody vomiting. Patient states he attempted to take Tylenol but threw it up. patient is a patient Dr. Stephan RUFF. <Tj Rivera APRN - Last Filed: 12/18/23 17:30> Related Data Allergies/adverse reactions: Allergies Allergy/AdvReac Type Severity Reaction Status Date / Time No Known Allergies Allergy Verified 12/18/23 17:13 <Tj Rivera APRN - Last Filed: 12/18/23 17:30> Review of Systems Review of Systems: A 10 system review of systems was completed on the patient and is negative except for what is stated in the HPI. Nursing and ancillary documentation was reviewed. <Juvencio Clancy MD - Last Filed: 12/18/23 22:14> [facility] Past Medical History Medical History: Medical History Miscarriage No active medical problems <Tj Rivera APRN - Last Filed: 12/18/23 17:30> Family History Family History: Family History Sibling SONIA (sudden ) <Tj Rivera APRN - Last Filed: 12/18/23 17:30> Social History Social History: Social History Social History: Single Smoking status: Never smoker Second hand tobacco smoke exposure: No Alcohol intake: current Alcohol use details: Occasionally Substance use: never Substance use type: does not use Do You Feel Safe in your Home?: Yes Lack of Transportation: No Lack of Food: Never True Current Housing: I Have Housing Concerned About Future Housing: No Difficulty Paying Gas/Electric Bills: No Difficulty Paying for Meds: No Currently Unemployed: No Education: Don't Know Difficulty w/ Childcare or Family Care: No Living arrangements: with family Occupation/Education: occupation 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 HEAD: Normocephalic, atraumatic. EYES: PERRLA and EOMI. ENT: Nares clear, no rhinorrhea or epistaxis. Mucous membranes moist. NECK: Supple. CHEST: Clear to auscultation. No respiratory distress. HEART: Regular rate and rhythm. No murmur heard. Normal peripheral pulses. ABDOMEN: Soft, nontender, nondistended, normal active bowel sounds. gravid abdomen EXTREMITIES: Normal range of motion. No edema. SKIN: Warm, dry, no rash. NEURO: No focal deficits. Alert and oriented x3. PSYCH: Normal mood and affect. <Juvencio Clancy MD - Last Filed: 12/18/23 22:14> Course Vital Signs Vital signs: Vital Signs Temperature 37.1 C 12/18/23 17:27 Pulse Rate 122 H 12/18/23 17:27 Respiratory Rate 20 12/18/23 17:27 Blood Pressure 125/85 12/18/23 17:27 Pulse Oximetry 97 12/18/23 17:27 Oxygen Delivery Room Air 12/18/23 17:27 Temperature 37.1 C 12/18/23 17:27 Pulse Rate 88 12/18/23 22:08 Respiratory
[2023-12-18] MEDS: ACETAMINOPHEN 500 MG TABLET 1000 MG PO (17:43)
[2023-12-18] MEDS: ONDANSETRON HCL ODT 4 MG TABLET PO (17:43)
[2023-12-18 17:48] LABS: Basophils Percent Auto 0.1 % (0.2-1.2); Eosinophils Absolute Auto 0.1 K/mm3 (0-0.3); Eosinophils Percent Auto 0.9 % (0-4.4); Hematocrit 40.8 % (37.0-47.0); Hemoglobin 13.6 g/dL (12.0-15.0); Immature Granulocyte Absolute 0.02 K/mm3 (0.00-0.031); Immature Granulocyte Percent A 0.3 % (0-0.5); Lymphocytes Absolute Auto 0.73 K/mm3 (0.9-3.2); Lymphocytes Percent Auto 10.8 % (18.3-44.2); Mean Corpuscular HGB Conc 33.3 g/dl (32-36); Mean Corpuscular Hemoglobin 29.5 pg (26-34); Mean Corpuscular Volume 88.5 fl (80-100); Mean Platelet Volume 9.8 fl (7.4-10.4); Monocytes Percent Auto 0.4 % (2.6-8.5); Neutrophils Absolute Auto 5.9 K/mm3 (1.3-6.7); Neutrophils Percent Auto 87.5 % (45.5-73.1); Platelet Count Result 292 k/mm3 (150-375); Red Blood Count 4.61 M/mm3 (4.2-5.4); Red Cell Distribution Width 15.1 % (11.5-14.5); White Blood Count 6.8 K/mm3 (4.5-10.0)
[2023-12-18 17:59] LABS: Alanine Aminotransferase 12 U/L (6-35); Albumin Level 4.9 g/dL (3.5-5.1); Alkaline Phosphatase 72 U/L (38-126); Anion Gap 15 mmol/L (4-12); Aspartate Amino Transferase 21 U/L (14-36); Bilirubin,Total 0.8 mg/dL (0.2-1.3); Blood Urea Nitrogen 6 mg/dL (7-17); Calcium 9.8 mg/dL (8.4-10.2); Carbon Dioxide 20 mmol/L (22-30); Chloride 101 mmol/L (98-107); Estimated CRCL calculation 131 ml/min; Estimated Glomerular Filt Rate > 60; Glucose 93 mg/dL (65-110); Potassium 3.7 mmol/L (3.4-5.0); Sodium 136 mmol/L (137-145)
[2023-12-18 20:23] LABS: Appearance Urine Turbid (Clear); Bacteria Urine 4+ /hpf; Bilirubin Urine Negative (Negative); Blood Urine 2+ (Negative); Budding Yeast Urine Present /hpf; Color Urine Yellow (Yellow); Glucose Urine UA Negative (Negative); Ketones Urine 2+ mg/dL (Negative); Leukocyte Esterase Ur 2+ LEU/UL (Negative); Mucus Urine Present /lpf; Need Manual Microscopic Reviewed; Nitrate Urine Positive (Negative); Protein Urine 2+ mg/dL (Negative); RBC Urine 21-50 /hpf (0-2); Specific Grav Ur 1.017 (1.001-1.035); Squamous Epithelial Cell Urine Few /hpf (Few); WBC Urine >100 /hpf (0-3); pH Urine 5.5 (5.0-9.0)
[2023-12-18 20:24] LABS: Add Urine Microscopic? YES
[2023-12-18] MEDS: SODIUM CHLORIDE 0.9% IV 1,000 ML 999 ML IV CONT (20:35)
[2023-12-18 20:42] VITALS: BP 115/61; PULSE 91; RESP 15; O2SAT 100
[2023-12-18 22:08] VITALS: BP 122/63; PULSE 88; RESP 14; O2SAT 100
== END 2023-12-18 22:36 | disposition home or self-care (01) ==
PROVIDERS: Nurse Practitioner Family; Emergency Provider Emergency Medicine; PCP Family Medicine
DX: O23.02 Infections of kidney in pregnancy, second trimester (principal); Z3A.17 17 weeks gestation of pregnancy
CPT/HCPCS: 36415; 76705; 76775; 80053; 81001; 85025; 87077; 87086; 87186; 96361; 96365; 99284; A9270; J0696; J7030

== ENCOUNTER 2024-01-27 14:22 | Observation (INO) | payer OTHER, SELFPAY ==
[2024-01-27] MEDS: ONDANSETRON INJ 4 MG/2 ML VIAL IV PUSH (15:18)
[2024-01-27] MEDS: DEXTROSE 5%/0.9% SOD CHL 1,000 ML 999 ML IV CONT (15:18)
[2024-01-27 15:25] VITALS: TEMP 37.5
[2024-01-27 15:27] VITALS: BP 120/63; PULSE 104
[2024-01-27 15:45] VITALS: TEMP 37.8
[2024-01-27 16:25] VITALS: TEMP 38.9
--- NOTE | 2024-01-27 16:56 | OBADM ---
This patient, Steven Mancilla, admitted to the OB room OB Post 111 for observation. Patient/family oriented to hospital policies and general routines including ID bracelet, bed and alarms, visiting hours, pain management, procedures, bathroom and other care routines, personal items, smoking policy, room service/diet, and visiting hours. Patient/Family are encouraged to report perceived risks to care and to ask questions if they do not understand what they are told or what they should do.
[2024-01-27 17:02] VITALS: TEMP 38.4
[2024-01-27] MEDS: ACETAMINOPHEN 500 MG TABLET 1000 MG PO (17:02)
--- NOTE | 2024-01-27 17:37 | WPDOBADMIT ---
Obstetrics - Admit Note Admission Note: 24 y/o at 23 weeks with dysuria, pos nitrites in the office. Intermittent nausea / vomiting, intermittent chills. Has taken Macrobid recently, last dose 5 days ago. Good movement. No URI symptoms. T102F, otherwise VSS ABD soft, nontender, gravid EXT nontender Back: No CVA tenderness A: UTI, doubt pyelonephritis. May also have viral syndrome as well. P: Rocephin, IV fluids. If she feels better she may go home this evening to f/u as scheduled.
[2024-01-27] MEDS: DEXTROSE 5%/0.9% SOD CHL 1,000 ML 500 ML IV CONT (17:43)
[2024-01-27 19:05] VITALS: TEMP 36.6
--- NOTE | 2024-01-27 19:52 | PC.NURSE ---
Call recieved from . Pt update n/v, fluids finished, temp, pt headache, food/water intake. Order to discharge pt home with Keflex 500 mg PO BID for seven days.
--- NOTE | 2024-01-27 20:20 | PC.NURSE ---
Pt discharged home undelivered in stable condition. Discharge instructions explained, pt recieved copy. Pt verbalized understanding, no questions or concerns @ this time. Medication transmitted to [facility] ([facility]) per Dr. monae.
--- NOTE | 2024-02-04 14:21 | PM.OBTRLD ---
OB - Triage/Final Diagnosis Visit Information Comments/Additional reasons for admission: I have assessed the risk for this patient, Steven Mancilla, and determined that she would benefit from observation care. Final Diagnosis (1) Nausea and vomiting during : Code(s): O21.9 - Vomiting of , unspecified Status: Acute (2) Cystitis during , antepartum: Code(s): O23.10 - Infections of bladder in , unspecified trimester Status: Acute
== END 2024-01-27 20:20 | disposition home or self-care (01) ==
PROVIDERS: Admitting Provider Obstetrics & Gynecology; PCP Family Medicine; Visit Provider Obstetrics & Gynecology
DX: O23.42 Unspecified infection of urinary tract in pregnancy, second trimester (principal); N39.0 Urinary tract infection, site not specified; Z3A.23 23 weeks gestation of pregnancy
CPT/HCPCS: 96361; 96365; 96375; A9270; G0378; G0379; J0696; J2405; J7042

== ENCOUNTER 2024-05-17 11:39 | Outpatient (CLI) | payer OTHER, SELFPAY ==
[2024-05-17 12:12] LABS: Hematocrit 33.2 % (37.0-47.0); Mean Corpuscular HGB Conc 30.1 g/dl (32-36); Mean Corpuscular Hemoglobin 25.6 pg (26-34); Mean Corpuscular Volume 84.9 fl (80-100); Mean Platelet Volume 10.4 fl (7.4-10.4); Platelet Count Result 303 k/mm3 (150-375); Red Blood Count 3.91 M/mm3 (4.2-5.4); Red Cell Distribution Width 14.9 % (11.5-14.5); White Blood Count 8.8 K/mm3 (4.5-10.0)
[2024-05-17 12:53] LABS: Rapid Plasma Reagin Non-Reactive (NonReactive)
[2024-05-17 13:03] LABS: HIV 1/2 Ab P24 Ag Result Negative (Negative)
== END 2024-05-17 11:40 | disposition home or self-care (01) ==
PROVIDERS: PCP Family Medicine; Visit Provider Obstetrics & Gynecology
DX: Z34.93 Encounter for supervision of normal pregnancy, unspecified, third trimester (principal); Z3A.00 Weeks of gestation of pregnancy not specified
CPT/HCPCS: 36415; 85027; 86592; 86703; 86850; 86900; 86901; G0432

== ENCOUNTER 2024-05-18 09:59 | Inpatient (IN) | payer OTHER, SELFPAY ==
[2024-05-18] VITALS (45 sets, daily range): BP systolic 106–133; BP diastolic 49–79; PULSE 53–121; RESP 10–20; TEMP 36.1–36.6; O2SAT 89–100; BMI 35.1
--- NOTE | 2024-05-18 09:59 | LDADM ---
This patient, Steven Mancilla, was admitted to Labor/Delivery/Recovery 119 on 05/18/24 at 09:59. Plans for labor, pain management and were discussed with patient. Patient/family oriented to hospital policies and general routines including ID bracelet, bed and alarms, visiting hours, pain management, procedures, bathroom and other care routines, personal items, smoking policy, room service/diet and guest tray routines, security routines, and visiting hours. Patient/Family are encouraged to report perceived risks to care and to ask questions if they do not understand what they are told or what they should do. See [facility]BI[facility] for further documentation.
[2024-05-18] MEDS: ACETAMINOPHEN 500 MG TABLET 1000 MG PO (10:43)
[2024-05-18] MEDS: LACTATED RINGERS 1,000 ML 125 ML IV CONT ×2 (10:46→12:02)
--- NOTE | 2024-05-18 11:42 | WPDANESEPPF ---
Anes - Initial Pre Proc Eval Procedure: Operation Date: 05/18/24 12:00 Proposed Procedures p Repeat Section - Celso Stanley MD Date/Time: 05/18/24 11:42 Surgeon: Celso Stanley MD Pre Op Diagnosis: Patient Data Age: 24 Gender: F Height: 1.6 m Weight: 90 kg Last Vital Signs Pulse 88 05/18/24 10:45 BP 122/79 05/18/24 10:45 Allergies Allergy/AdvReac Type Severity Reaction Status Date / Time No Known Allergies Allergy Verified 05/05/24 09:03 Home Medications ?Medication ?Instructions ?Recorded ?Confirmed ?Type No Home Medications 05/05/24 05/05/24 History Patient hx anesthesia problems: none Family hx anesthesia problems: none Results Review: All pre-operative results and documents have been reviewed as part of the pre-operative evaluation. [facility] Surgical History Surgical History (Updated 05/18/24 @ 11:43 by Papito Salazar MD) History of section Family History Family History Sibling SONIA (sudden infant ) Mother Early menopause Social History Social History Social History: Single Smoking status: Never smoker Second hand tobacco smoke exposure: Yes Alcohol intake: current Alcohol use details: Occasionally Substance use: never Substance use type: does not use Do You Feel Safe in your Home?: Yes Lack of Transportation: No Lack of Food: Never True Current Housing: I Have Housing Concerned About Future Housing: No Difficulty Paying Gas/Electric Bills: No Difficulty Paying for Meds: No Currently Unemployed: No Education: Associate Degree Difficulty w/ Childcare or Family Care: No Living arrangements: with family Occupation/Education: occupation 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 Gender identity (if verbalized by the patient): Female Sexual Orientation (if Verbalized by the Patient): Straight or Heterosexual Spiritual care concerns: No Agree to blood products: Yes Anes - Eval Final PreProcedure Day of Procedure 05/18/24 11:42 Patient weight: obese Heart: regular rate and rhythm Lungs: clear to auscultation Airway: Mallampati scale class II Neurological: alert and oriented Last oral intake: >/= 8 hours ASA classification: II Emergent: no Anesthetic plan: proceed Anesthesia type and monitoring: regional spinal and standard monitoring Results Review: All pre-operative results and documents have been reviewed as part of the pre-operative evaluation. Informed Consent: The patient's anesthetic plan and its attendant risks and benefits were discussed with the patient/family/POA. Questions were solicited and answers provided to the satisfaction of the patient/family/POA.
--- NOTE | 2024-05-18 11:53 | PM.IMHP ---
H&P: HPI History of Present Illness Date/Time: 05/18/24 11:53 Chief Complaint: Here for repeat Narrative: 24 y/o at 39 weeks here for scheduled repeat . GBS neg. EFW 7# by ultrasound 4 weeks ago. Review of Systems Review of Systems: All systems reviewed & are unremarkable except as noted in HPI and below PMFSH Past Medical History Medical History Chronic GERD History of anxiety Surgical History Surgical History (Updated 05/18/24 @ 11:56 by Celso Stanley MD) History of section Family History Family History Sibling SONIA (sudden ) Mother Early menopause Social History Social History Social History: Single Smoking status: Never smoker Second hand tobacco smoke exposure: Yes Alcohol intake: current Alcohol use details: Occasionally Substance use: never Substance use type: does not use Do You Feel Safe in your Home?: Yes Lack of Transportation: No Lack of Food: Never True Current Housing: I Have Housing Concerned About Future Housing: No Difficulty Paying Gas/Electric Bills: No Difficulty Paying for Meds: No Currently Unemployed: No Education: Associate Degree Difficulty w/ Childcare or Family Care: No Living arrangements: with family Occupation/Education: occupation 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 Gender identity (if verbalized by the patient): Female Sexual Orientation (if Verbalized by the Patient): Straight or Heterosexual Spiritual care concerns: No Agree to blood products: Yes Meds Home Medications and Allergies Home Medications ?Medication ?Instructions ?Recorded ?Confirmed ?Type No Home Medications 05/05/24 05/05/24 History Allergies Allergy/AdvReac Type Severity Reaction Status Date / Time No Known Allergies Allergy Verified 05/05/24 09:03 Vital Signs Vital Signs - 24 hr 05/18/24 10:29 05/18/24 10:30 05/18/24 10:45 Pulse Rate 101 H 92 88 Blood Pressure 116/76 113/73 122/79 Exam Const: Orientation/consciousness: patient oriented x3 Other: Well-developed, well-nourished female in no acute distress. Neck: Thyroid: thyroid normal Lymphatic: no lymphadenopathy noted (in neck, axilla or inguinal nodes) Resp: Effort & Inspection: normal respiratory effort Auscultation: clear to auscultation bilaterally Cardio: Rate: regular rate Rhythm: regular rhythm Heart sounds: S1 normal heart sound present and S2 normal heart sound present GI: Other: ABD: Soft, nontender, nondistended, gravid. NST reactive. TOCO: irregular contractions. No guarding or rebound tenderness. No hepatosplenomegaly. Vertex by Mak's maneuvers. : General: Yes no CVA tenderness Other: Cervix closed Back/Spine/Pelvis: Back: no CVA tenderness Skin: General skin exam: normal color and no rashes or lesions noted Neuro: General: patient oriented x3 Extrem: Other: Extremities: nontender with no edema Psych: Mental Status: mental status grossly normal Affect: normal affect Assessment and Plan Assessment and plan (1) History of section: Code(s): Z98.891 - History of uterine scar from previous surgery Status: Acute Assessment and Plan: A: IUP at 39 weeks with prior , desires repeat. P: Offered repeat . She understands risks of surgery to include risks of anesthesia, risks of pain, infection, bleeding, blood products, thromboembolic phenomena and damage to adjacent structures such as bowel, bladder, ureters, blood vessels and nerves. She understands all these risks and elects to proceed with surgery. (2) Term : Code(s): Z34.90 - Encounter for supervision of normal , unspecified, unspecified trimester Status: Acute
--- NOTE | 2024-05-18 11:58 | WPDHPUPDATE1 ---
History and Physical Update Update Date/Time: 05/18/24 11:58 History and Physical has been reviewed, including an updated exam of the patient. There are NO changes in the patient's condition. Risks, benefits, and alternatives have been discussed and questions answered. Patient agrees to proceed with procedure.
[2024-05-18] MEDS: ONDANSETRON INJ 4 MG/2 ML VIAL IV PUSH (11:59)
[2024-05-18] MEDS: FAMOTIDINE 20 MG/2 ML VIAL IV PUSH (11:59)
[2024-05-18] MEDS: ceFAZolin 2 GM/D5W 50 ML 2 GM/50 ML BAG IVPB (12:05)
--- NOTE | 2024-05-18 13:03 | W.PM.OBCSD ---
OB - Delivery Note Procedure Delivery date: 05/18/24 Pre-op diagnosis: Previous Delivery (IUP at 39 weeks; Prior , desires repeat) Post-op Diagnosis: Same Induction method: None Delivery monitor: External FHT and External Uterine Procedure Performed: Repeat Surgeon: Celso Stanley MD Anesthesia type: Spinal Description of Procedure/Findings: The patient was taken to the operating room where she was prepared and draped in the usual sterile fashion in dorsal supine position with a leftward tilt. She received cefazolin preoperatively. Spinal anesthesia was found to be adequate. A Pfannenstiel skin incision was made along the previous scar line and was carried through to the underlying layer of the fascia. The fascia was incised in the midline and the incision was extended laterally. The fascia was dissected free of the underlying rectus muscles. The rectus muscles were in the midline. The peritoneum was identified, tented up and entered sharply. The peritoneal incision was extended superiorly and inferiorly with good visualization of the bladder. The bladder blade was placed. The vesicouterine peritoneum was identified, tented up and entered sharply. The incision was extended laterally and the bladder flap was developed. The bladder blade was replaced. The uterus was then incised sharply in a transverse fashion along the lower uterine segment. The incision was extended laterally. The 's head was delivered atraumatically to the sterile field, followed by the body. The nose and mouth were bulb suctioned. After a delay, the cord was clamped and cut. The infant was handed off the field. Cord blood was collected. The placenta was removed manually and was passed off the field. The uterus was exteriorized and cleared of all clots and debris. The uterine incision was reapproximated using 0 Monocryl in a running, locked fashion. Excellent hemostasis resulted as did excellent reapproximation of the normal anatomy. The uterus was returned the abdomen. The pelvis was irrigated copiously with warmed normal saline. Rigorous hemostasis was assured. The fascial layer was reapproximated using 0 Vicryl in a running fashion. The skin was closed with a running, subcuticular stitch of 4 0 Vicryl. Dermaflex was applied externally. Sponge, lap, needle and instrument counts were correct. The patient was taken to the recovery room in stable condition. The went to the nursery in stable condition. I was present and scrubbed the entire procedure. Specimen: Yes (cord blood) Estimated Blood Loss: 340 Drains: Yes (pearson) Packing: No Pathology: None sent Complications: None Condition: Stable Disposition: PACU Baby Date of : 05/18/24 Time of : 12:32 Gestational Age by Date: 39 gender: Female Weight (pounds): 6 Weight (ounces): 2 presentation: vertex Placenta delivery description: Manual Removal and Normal Configuration Cord Vessel Description: 3 Vessels and Delayed Cord Clamping score one minute: 8 score five minutes: 9
--- NOTE | 2024-05-18 13:06 | PM.OBDSVD ---
DS: Admitting Diagnosis Discharge Date 05/20/24 Admitting Diagnosis IUP at 39 weeks Prior , desires repeat DS: Discharge Diagnosis Discharge Diagnosis (1) delivery delivered: Code(s): O82 - Encounter for delivery without indication Status: Acute OB - DS: Summary OB Procedures : None OB Procedures Intrapartum: OB Procedures: : None Peripartum Data Procedures: Procedures Operation Date: 05/18/24 12:00 <No data on this case meets the specified criteria> Time Spent with Patient Time attestation: Total time spent providing and/or coordinating discharge services: Discharge Plan Discharge Attending physician on discharge: Celso Stanley Discharging Clinician: Celso Stanley Patient Disposition: Home, Self-Care Activity: may shower and may drive after 2 weeks Diet: regular Wound Care Instructions: incision open to air Discharge Instructions: Call or return if temperature above 100.4? F, increased abdominal pain, increased vaginal bleeding or any new problems. Patient Language: Luxembourger Stand Alone Forms: General Discharge Information Follow-up/Referrals: Celso Stanley MD [Physician] - 4 Weeks Discharge Medications: New ibuprofen 600 mg tablet 600 mg PO Q6H PRN (Reason: cramps) Qty: 30 0RF ferrous sulfate 325 mg (65 mg iron) tablet 325 mg PO DAILY Qty: 30 0RF hydrocodone-acetaminophen 5-325 mg tablet 1 - 2 tablet PO Q6H PRN (Reason: pain) Qty: 30 0RF Date of admission: 05/18/24 09:59 Primary Care Provider: Neida Zelaya Admitting Provider: Celso Stanley Attending physician on admission: Celso Stanley Condition: Stable
[2024-05-18] MEDS: OXYTOCIN 30 UNITS/NS 500 ML 30 UNITS/500 ML BAG 125 UNITS IV CONT (13:14)
--- NOTE | 2024-05-18 15:15 | OBPPTRN ---
Patient transferred to post room # 290 via stretcher. Support person present. Oriented to unit, room, information board, rooming in, admission packet and security measures. Patient verbalizes understanding.
[2024-05-18] MEDS: ACETAMINOPHEN 325 MG TABLET 650 MG PO (16:51)
[2024-05-18] MEDS: DOCUSATE SODIUM 100 MG CAPSULE PO (16:51)
[2024-05-18] MEDS: SIMETHICONE 80 MG TAB.CHEW PO (16:51)
[2024-05-18] MEDS: KETOROLAC 15 MG/ML VIAL (*BKC) IV PUSH (16:51)
[2024-05-18] MEDS: LIDOCAINE 5% PATCH 1 PATCH TRANSDERM (16:52)
[2024-05-18] MEDS: DEXTROSE 5%/0.45% SOD CHL 1,000 ML 125 ML IV CONT (16:57)
--- NOTE | 2024-05-18 17:05 | PC.NURSE ---
1705- Introductions were made, then consulted with patient to assess needs related to . Discussed with mother her?plans to feed?her and the?experience so far. Resources provided for inpatient and outpatient services with the feeding sheet, mom/baby guide, admission packet and name written on the communication board. Mother voiced understanding of information and will call if there is a request for assistance. Reported to the Primary RN. 1750- Primary RN requested assistance with . Mom was able to wake baby well but couldn't achieve a latch that baby was able to maintain. She had baby in cradle hold on the right breast and baby opened wide and latched with minimal assistance. Mom instructed to bring baby in quick and close when she gives a wide gape. Also educated mom that she may have to continue to hold her breast for baby while baby is learning and growing. Mom says the latch feels comfortable and baby needed some stimulation to suckle but maintained the latch and sucked intermittently. Encouraged mom to call out if she loses the latch or needs help switching sides. Reported to primary RN.
[2024-05-19] MEDS: ACETAMINOPHEN 325 MG TABLET 650 MG PO ×4 (00:18→22:16)
[2024-05-19] MEDS: KETOROLAC 15 MG/ML VIAL (*BKC) IV PUSH ×3 (00:18→15:40)
[2024-05-19 04:30] VITALS: BP 109/67; PULSE 76; RESP 16; TEMP 36.6; O2SAT 100
[2024-05-19 05:20] LABS: Basophils Absolute Auto 0.1 K/mm3 (0.0-0.1); Basophils Percent Auto 0.4 % (0.2-1.2); Eosinophils Absolute Auto 0.2 K/mm3 (0-0.3); Eosinophils Percent Auto 1.8 % (0-4.4); Hematocrit 28.8 % (37.0-47.0); Hemoglobin 8.9 g/dL (12.0-15.0); Immature Granulocyte Absolute 0.05 K/mm3 (0.00-0.031); Immature Granulocyte Percent A 0.4 % (0-0.5); Lymphocytes Percent Auto 20.3 % (18.3-44.2); Mean Corpuscular HGB Conc 30.9 g/dl (32-36); Mean Corpuscular Hemoglobin 26.3 pg (26-34); Mean Platelet Volume 10.9 fl (7.4-10.4); Monocytes Absolute Auto 0.8 K/mm3 (0.1-0.6); Monocytes Percent Auto 6.8 % (2.6-8.5); Neutrophils Absolute Auto 8.3 K/mm3 (1.3-6.7); Neutrophils Percent Auto 70.3 % (45.5-73.1); Platelet Count Result 259 k/mm3 (150-375); Red Blood Count 3.39 M/mm3 (4.2-5.4); Red Cell Distribution Width 14.9 % (11.5-14.5); White Blood Count 11.8 K/mm3 (4.5-10.0)
[2024-05-19 07:30] VITALS: BP 116/74; PULSE 79; RESP 16; TEMP 36.4; O2SAT 100
--- NOTE | 2024-05-19 08:46 | PM.OBPNVD ---
OB - PN: Subj Subjective Date/time seen: 05/19/24 08:46 Narrative: Pain OK. Tolerating diet. OB - PN: Obj Data Labs 05/19/24 04:30 Labs: Laboratory Results - last 24 hr 05/19/24 04:30 WBC 11.8 H RBC 3.39 L Hgb 8.9 L Hct 28.8 L MCV 85.0 MCH 26.3 MCHC 30.9 L RDW 14.9 H Plt Count 259 MPV 10.9 H Immature Gran % (Auto) 0.4 Neut % (Auto) 70.3 Lymph % (Auto) 20.3 [place] % (Auto) 6.8 Eos % (Auto) 1.8 Baso % (Auto) 0.4 Lymph # (Auto) 2.40 [place] # (Auto) 0.8 H Eos # (Auto) 0.2 Baso # (Auto) 0.1 Abs Immat Gran (auto) 0.05 H Absolute Neuts (auto) 8.3 H Absolute Nucleated RBC 0.000 Nucleated RBC % 0.0 OB - PN A/P Plan day: 1 Comments: A: POD#1, doing well. P: Routine care. Exam Narrative: AVSS I/O OK ABD soft, nontender, fundus firm. Incision c/d/i. EXT nontender
[2024-05-19] MEDS: POLYSACCHARIDE IRON COMPLEX 150 MG CAPSULE PO ×2 (09:41→17:19)
[2024-05-19] MEDS: MULTIVIT/MIN/PREN/FOL AC/IRON TABLET 1 TAB PO (09:41)
[2024-05-19] MEDS: DOCUSATE SODIUM 100 MG CAPSULE PO ×2 (09:41→17:19)
[2024-05-19] MEDS: SIMETHICONE 80 MG TAB.CHEW PO ×2 (09:44→17:19)
--- NOTE | 2024-05-19 11:22 | PC.NURSE ---
Mother had called out for assistance with feeding. Introductions were made, then consulted with patient to assess needs related to . Discussed with mother her?plans to feed?her and the?experience so far. Per mother she plans on exclusively her baby. Baby had just fed at 1030 for 3-5 mins and was now dressed and swaddled in a blanket. Encouraged understanding the benefits of skin to skin, responding to feeding cues, frequencies of feeding 8-12 times in 24 hours (approximately 2-3 hours), duration of feedings, milk production, intake/output feeding sheet and signs of adequate intake encouraging swallowing at the breast. RN encouraged mother to put baby skin to skin and watch for feeding cues, then call out for assistance with latch and positioning. Resources used to facilitate learning were used from the [visual handouts/ tool/mom and baby guide]. Mother voiced understanding of the education shared, to call for assistance if the does not latch or if there is discomfort with . Reported to the Primary RN.
[2024-05-19 12:04] VITALS: BP 117/67; PULSE 84; RESP 18; TEMP 36.4; O2SAT 99
[2024-05-19] MEDS: LIDOCAINE 5% PATCH 1 PATCH TRANSDERM (17:20)
--- NOTE | 2024-05-19 18:07 | PC.NURSE ---
1745. Met with mom to discuss infants feedings. Encouraged mom to feed for at least 10-15 min since infant is over 24 hrs. Mom had been feeding in short stents 4min, 5 min at a time. We discussed taking a break if infant gets sleepy to burp and bring her s2s, then reattempt to latch infant and continue the feeding. Encouraged mom to call out if does not want to continue feeding after 5 min or if she has questions. Mom verbalized understanding. Reported to the primary RN.
--- NOTE | 2024-05-19 18:34 | WPDANLDPN2 ---
Anes-Prog Note L&D Date/Time: 05/19/24 18:34 Comfortable throughout: section Neuraxial method: spinal Epidural/Spinal procedure site: clean & non-tender Neuro status: Neuro function grossly intact. Cardiovascular status: normal Respiratory status: normal Airway patency: baseline Mental status: baseline Post-Op hydration status: normal Vital Signs: Last Vital Signs Temp 97.6 F 05/19/24 12:04 Pulse 84 05/19/24 12:04 Resp 18 05/19/24 12:04 BP 117/67 05/19/24 12:04 Pulse Ox 99 05/19/24 12:04 O2 Del Method Room Air 05/18/24 19:05 Pain score (VAS): 0/10 I/O: Intake & Output 05/19/24 05/19/24 05/19/24 07:59 15:59 23:59 Intake Total 700 Output Total 850 Balance -150 Post-procedural complaints: none Patient feedback: Patient satisfied with anesthetic care.
--- NOTE | 2024-05-19 18:34 | WPDANLDNPN2 ---
Anes-Prog Note L&D-Neuraxial Date/Time: 05/19/24 18:34 Neuraxial medications: intrathecal PF morphine Opiod-related complaints: none Patient feedback: Patient satisfied with post-operative pain management.
--- NOTE | 2024-05-19 19:00 | PC.NURSE ---
Pt introductions made and plan of care discussed per post post op c section, pain management, breast feeding, daily care activities. PT and spouse both present for introductions and no barriers to learning identified at this time. PT received such instructions per one to one discussion, mom baby care guide and demonstrations. PT verbalized understanding of such care.
[2024-05-19 19:10] VITALS: BP 123/73; PULSE 74; RESP 18; TEMP 36.6; O2SAT 100
[2024-05-19] MEDS: IBUPROFEN 600 MG TABLET PO (22:16)
[2024-05-19] MEDS: LANOLIN (LANSINOH) 7.5 GM CREAM 1 APPLIC TOPICAL (22:17)
[2024-05-19] MEDS: TETANUS,DIPHTHERIA,AC PERTUSSIS ADULT (0.5 ML) BOOSTRIX IM (22:18)
[2024-05-20 08:55] VITALS: BP 125/74; PULSE 79; RESP 16; TEMP 36.6; O2SAT 99
[2024-05-20] MEDS: SIMETHICONE 80 MG TAB.CHEW PO (09:00)
[2024-05-20] MEDS: POLYSACCHARIDE IRON COMPLEX 150 MG CAPSULE PO (09:00)
[2024-05-20] MEDS: DOCUSATE SODIUM 100 MG CAPSULE PO (09:00)
[2024-05-20] MEDS: MULTIVIT/MIN/PREN/FOL AC/IRON TABLET 1 TAB PO (09:01)
[2024-05-20] MEDS: ACETAMINOPHEN 325 MG TABLET 650 MG PO (09:01)
[2024-05-20] MEDS: IBUPROFEN 600 MG TABLET PO (09:01)
--- NOTE | 2024-05-20 09:45 | PC.NURSE ---
Consulted with patient to assess needs related to . Discussed with mother her successes, concerns and any questions she has. Per mother she was having trouble keeping baby awake for feedings. We reviewed working with the infant, supporting breast, protecting her nipples with an optimal deep latch, good positioning, and good hand washing. Encouraged understanding the benefits of skin to skin, responding to feeding cues, frequencies of feeding 8-12 times in 24 hours (approximately 2-3 hours), duration of feedings, milk production, intake/output feeding sheet and signs of adequate intake encouraging swallowing at the breast. Reviewed positioning and alignment, supporting breast, off-centered (asymmetrical latch) and leading with the chin with big, open, wide gape. Infant latched optimally to the [right] breast in [cross cradle] position. Education given to the mother of how to visualize the suckling (with good rocking jaw motion) swallows (dropping of the lower jaw) and how to listen for drinking at the breast (the ka sound). The was [able] to maintain latch without discomfort to mother for 10 mins total and RN and mother were able to hear swallows. Nipple care reviewed with optimal latch, good positioning and using clean hands when touching her breast. Resources used to facilitate learning were used from the [visual handouts/ tool/mom and baby guide]. Mother voiced understanding of the education shared, to call for assistance if the infant does not latch or if there is discomfort with . Reported to the Primary RN.
--- NOTE | 2024-05-20 11:47 | P.PNOB_ITS ---
OB - PN: Subj Subjective Date/time seen: 05/20/24 11:47 Narrative: Pain OK. Tolerating diet. Would like to go home. OB - PN: Obj Data Labs 05/19/24 04:30 OB - PN A/P Plan day: 2 Comments: A: POD#2, doing well. P: Home to f/u 4 weeks. Exam 2 Narrative: AVSS ABD soft, nontender, fundus firm. Incision c/d/i. EXT nontender
[2024-05-21 14:43] VITALS: BP 126/77; PULSE 93; RESP 18; TEMP 36.4; O2SAT 100
== END 2024-05-20 14:10 | disposition home or self-care (01) | DRG 788 ==
LOC: ANHLDR 13:07 → ANHOB2 15:25
PROVIDERS: Admitting Provider Obstetrics & Gynecology; PCP Family Medicine; Visit Provider Obstetrics & Gynecology
PROC: 10D00Z1 Extraction of Products of Conception, Low, Open Approach (ICD-10-PCS; CPT 59514; principal; 2024-05-18 12:00)
DX: O34.211 Maternal care for low transverse scar from previous cesarean delivery (principal); Z37.0 Single live birth; Z3A.39 39 weeks gestation of pregnancy
CPT/HCPCS: 36415; 85025; 90715; A9270; J0690; J1200; J1885; J2274; J2405; J2590; J7120